=== PATIENT | female | born 1975 | race Caucasian/White ===

== ENCOUNTER → 2018-05-07 | Outpatient (CLI) | payer OTHER ==
--- NOTE | ~2018-05-07 | HM ---
[place], [place] HOLTER MONITOR REPORT [facility]: [facility]ON [id number] UNIT #: [id number] ROOM: DOCTOR: SHOAIB HUDSON MD BIRTHDATE: [birth year] DOS: 05/07/2018 AGE: 42 SEX: Female. INDICATIONS: Palpitations. ANALYSIS DONE ON: 05/08/2018 FINDINGS: Baseline rhythm, normal sinus rhythm. Maximum heart rate 150, minimum heart rate 63 and average heart rate 93. Atrial fibrillation burden 0%, occasional PVCs about 18 were noted. PVC burden is 0%. There were occasional premature atrial complexes, total about 24 and premature atrial complexes burden is 0%. There were no episodes of pauses, supraventricular tachycardia, ventricular tachycardia or ventricular fibrillation. No events were recorded in the patient's diary. IMPRESSION: Normal Holter monitor except for occasional premature atrial and ventricular complexes. Shoaib Hudson MD CM:HOLTER:HOLTER MONITOR REPORT [id number] SHOAIB HUDSON MD
[2018-05-07 10:11] LABS: BASO % 0.6 % (0.0-1.0); EOS # 0.1 10*3/uL (0.0-0.4); HEMATOCRIT 40.3 % (37.0-47.0); HEMOGLOBIN 13.5 g/dl (12.0-16.0); LYMPH # 3.5 10*3/uL (1.3-4.4); LYMPH % 51.9 % (27.0-41.0); MEAN CORPUSCULAR HGB 31.8 pg (27.0-31.0); MEAN CORPUSCULAR HGB CONC 33.5 g/dl (33.0-37.0); MEAN PLATELET VOLUME 10.4 fl (9.6-12.3); MONO # 0.4 10*3/uL (0.1-1.0); MONO % 6.3 % (3.0-9.0); NEUT # 2.7 10*3/uL (2.3-7.9); NEUT % 40.1 % (47.0-73.0); PLATELET COUNT AUTOMATED 214 10*3/uL (130-400); RED BLOOD COUNT 4.24 10*6/uL (4.10-5.10); RED CELL DISTRI WIDTH 12.5 % (0-14.5); WHITE BLOOD COUNT 6.7 10*3/uL (4.8-10.8)
[2018-05-07 10:30] LABS: ALBUMIN 3.9 gm/dl (3.1-4.5); BUN 16 mg/dl (7-24); CHLORIDE 106 mmol/L (98-107); CHOLESTEROL 150 mg/dL (<200); CREATININE 0.92 mg/dL (0.55-1.02); POTASSIUM 4.1 mmol/L (3.5-5.1); SGOT/AST 8 IU/L (3-35); SGPT/ALT 21 U/L (12-78); SODIUM 139 mmol/L (136-145); TOTAL PROTEIN 7.5 gm/dL (6.4-8.2); TRIGLYCERIDES 96 mg/dl (<150); VLDL CHOLESTEROL 19 mg/dL (6-40)
[2018-05-07 10:37] LABS: ALKALINE PHOSPHATASE 83 U/L (45-117); HDL CHOLESTEROL 41 mg/dl (40-60); LDL CHOLESTEROL 90 mg/dL (9-159)
== END ==
LOC: CARD 09:00 → LAB 09:21
PROVIDERS: Internal Medicine Cardiovascular Disease
DX: E78.2 Mixed hyperlipidemia (principal); R00.2 Palpitations; Z82.49 Family history of ischemic heart disease and other diseases of the circulatory system

== ENCOUNTER → 2020-11-04 | Outpatient (CLI) | payer OTHER | END | disposition home or self-care (01) | LOC: RAD 10:34 | PROVIDERS: ATTEND Chiropractor | DX: S13.180A Subluxation of C7/T1 cervical vertebrae, initial encounter (principal); M50.323 Other cervical disc degeneration at C6-C7 level; M48.02 Spinal stenosis, cervical region; X58.XXXA Exposure to other specified factors, initial encounter; Y93.89 Activity, other specified; Y92.89 Other specified places as the place of occurrence of the external cause; Y99.8 Other external cause status ==

== ENCOUNTER → 2022-04-07 | Outpatient (CLI) | payer OTHER | END | disposition home or self-care (01) | LOC: MAMMO 08:53 | PROVIDERS: ATTEND Family Medicine | DX: Z12.31 Encounter for screening mammogram for malignant neoplasm of breast (principal); N64.9 Disorder of breast, unspecified ==

== ENCOUNTER → 2023-03-07 | Outpatient (CLI) | payer OTHER | END | disposition home or self-care (01) | LOC: US 00:18 | PROVIDERS: ATTEND Internal Medicine | DX: D25.0 Submucous leiomyoma of uterus (principal) ==

== ENCOUNTER → 2023-05-04 | Outpatient (CLI) | payer OTHER | END | disposition home or self-care (01) | LOC: MAMMO 08:23 | PROVIDERS: ATTEND Internal Medicine | DX: Z12.31 Encounter for screening mammogram for malignant neoplasm of breast (principal) ==